=== PATIENT | male | born 2000 | race Caucasian/White ===

== ENCOUNTER → 2023-12-01 | Emergency (ER) | payer OTHER ==
[~2023-12-01] VITALS: Ht 188 cm; Wt 65.0 kg
[2023-12-01 07:54] VITALS: BP 141/81; PULSE 84; RESP 18; TEMP 98; O2SAT 100
== END | disposition still patient (30) ==
LOC: EMS 07:28
DX: L03.116 Cellulitis of left lower limb (principal)
CPT/HCPCS: 99283; Z7502